=== PATIENT | female | born 1965 | race Two or more races ===

== ENCOUNTER 2020-04-05 20:41 | Emergency (ER) | payer SELFPAY ==
[~2020-04-05] VITALS: Ht 157.5 cm; Wt 90.7 kg
[2020-04-05 20:43] VITALS: BP 157/99
== END 2020-04-05 21:30 | disposition left against medical advice (07) ==
LOC: ER 20:41
DX: R06.02 Shortness of breath (principal); Z53.21 Procedure and treatment not carried out due to patient leaving prior to being seen by health care provider
CPT/HCPCS: 93005